=== PATIENT | male | born 1965 | race Caucasian/White ===

== ENCOUNTER → 2017-07-29 | Outpatient (CLI) | payer OTHER ==
[~2017-07-29] VITALS: Ht 175.3 cm; Wt 125.2 kg
[~2017-07-29] MED LIST: ASPIR 8181 M1 PO; ASPIRIN325 MG PO; AVENTYL,PAMELOR10 MG PO; BENADRYL25 MG PO; CELEBREX200 MG PO; CELECOXIB200 MG PO; FERROUS SULFAT325 MG PO; IRON325 M1 PO; KEFLEX500 MG PO; LEVOTHYROXINE150 MCG PO; NAPROSYN500 MG PO; NEURONTIN100 MG PO; NORCO 5/3251 TABLET PO; OXYCODONE HCL5 MG PO; OXYCONTIN10 MG PO; PROTONIX40 MG PO; RANITIDINE HCL150 MG PO; SENNA PLUS TAB1 EACH PO; STOOL SOFTENER100 MG PO; SYNTHROID150 MCG PO; TRAMADOL HCL50 MG PO; TYLENOL EXTRA500 MG PO; TYLENOL REGULA325 MG PO; XARELTO10 MG PO
== END | disposition home or self-care (01) ==
LOC: AMB 09:56
PROC: 0DJD8ZZ Inspection of Lower Intestinal Tract, Via Natural or Artificial Opening Endoscopic (ICD-10-PCS; principal; 2017-07-29)
DX: Z12.11 Encounter for screening for malignant neoplasm of colon (principal); R10.13 Epigastric pain; F17.290 Nicotine dependence, other tobacco product, uncomplicated; G89.29 Other chronic pain; M54.5 Low back pain; Z96.641 Presence of right artificial hip joint; K21.9 Gastro-esophageal reflux disease without esophagitis; E03.9 Hypothyroidism, unspecified; E66.01 Morbid (severe) obesity due to excess calories; Z68.41 Body mass index [BMI] 40.0-44.9, adult; K76.0 Fatty (change of) liver, not elsewhere classified; I87.2 Venous insufficiency (chronic) (peripheral); Z80.3 Family history of malignant neoplasm of breast; Z82.49 Family history of ischemic heart disease and other diseases of the circulatory system
CPT/HCPCS: J2250; J3010

== ENCOUNTER 2017-10-03 19:09 | Emergency (ER) | payer OTHER ==
[~2017-10-03] VITALS: Ht 175.3 cm; Wt 132.0 kg
[2017-10-03 19:11] VITALS: BP 146/97
[2017-10-03] MEDS ORDERED: NORCO 7.5/321 TABLET PO (22:11)
[2017-10-03] MEDS ORDERED: VIBRAMYCIN100 MG PO (22:11)
[2017-10-03] MEDS ORDERED: MOTRIN800 MG PO (22:11)
== END 2017-10-03 22:56 | disposition home or self-care (01) ==
LOC: EME 19:09
DX: S61.212A Laceration without foreign body of right middle finger without damage to nail, initial encounter (principal); S61.210A Laceration without foreign body of right index finger without damage to nail, initial encounter; W23.0XXA Caught, crushed, jammed, or pinched between moving objects, initial encounter; Y93.89 Activity, other specified; Z23 Encounter for immunization
CPT/HCPCS: 73130; 99281; 99284